=== PATIENT | male | born 1965 | race Caucasian/White ===

== ENCOUNTER 2021-09-17 06:55 | Day surgery (SDC) | payer OTHER ==
[2021-09-17] VITALS (10 sets, daily range): BP systolic 83–138; BP diastolic 53–87
[~2021-09-17] VITALS: Ht 185.4 cm; Wt 99.8 kg
--- NOTE | 2021-09-17 08:00 | NUR ---
KRYSTYNA SANABRIA FROM [facility] TEAM IN ROOM TO OBTAIN VS.
--- NOTE | 2021-09-17 08:14 | NUR ---
PATIENT IS RESTING IN BED. ASSESSMENT DONE. PATIENT IS ALERT AND ORIENT X3. RESPS EVEN AND UNLABORED. KRYSTYNA SANABRIA STARTED A #20 IV THAT APPEAR HEALTHY. PATIENT DENIES NEEDS. CALL LIGHT IN REACH.
--- NOTE | 2021-09-17 08:29 | NUR ---
PATIENT IS VERY DROWSY. WAS ABLE TO OBTAIN VS BUT NOT FULL ASSESSMENT AT THIS TIME. CALL LIGHT IN REACH AND BED ALARM IN PLACE.
[2021-09-17] MEDS ORDERED: OXYCODONE30 MG PO (09:00)
[2021-09-17] MEDS ORDERED: NEXIUM40 M1 PO (09:00)
[2021-09-17 09:47] LABS: HEMATOCRIT 41.7 % (39.0-50.0); HEMOGLOBIN 14.3 g/dl (14.0-18.0); MEAN CELL VOLUME 85.3 fL CALC (80.0-100.0); MEAN CORPUSCULAR HGB 29.2 pG CALC (26.0-32.0); MEAN CORPUSCULAR HGB CONC 34.3 g/dL CAL (32.0-36.0); RED BLOOD COUNT 4.89 mill/uL (4.70-6.10); RED CELL DISTRI WIDTH 12.9 % (11.5-15.5)
[2021-09-17 10:00] LABS: ALBUMIN 4.1 g/dL (3.2-5.0); ALKALINE PHOSPHATASE 54 u/l (38-126); ANION GAP 8 (6-22 (CALC)); BILIRUBIN, TOTAL 1.1 mg/dL (0.0-1.4); BUN 13 mg/dL (9-20); BUN/CREATININE RATIO 15 (12-20 (CALC)); CARBON DIOXIDE 32 mmol/l (22-30); CHLORIDE 104 mmol/l (95-108); CREATININE 0.8 mg/dL (0.7-1.3); GFR > 60 ML/MIN (>=60 (CALC)); GFR FOR AFR.AMER. > 60 ML/MIN (>=60 (CALC)); POTASSIUM 3.7 mmol/l (3.5-5.1); SGOT/AST 41 u/l (17-59); SODIUM 140 mmol/l (137-146); TOTAL PROTEIN 7.3 g/dL (6.3-8.2)
[2021-09-17] MEDS ORDERED: CLONIDINE0.1 MG PO (10:31)
[2021-09-17] MEDS ORDERED: NALTREXONE50 MG PO (10:31)
[2021-09-17] MEDS ORDERED: KLONOPIN0.5 MG PO (10:32)
--- NOTE | 2021-09-17 10:55 | NUR ---
PATIENT WENT VIA BED TO THE [facility] PROCEDURE BY KRYSTYNA SANABRIA.
--- NOTE | 2021-09-17 14:46 | NUR ---
PATIENT CAME FROM [facility] PROCEDURE VIA BED BY KRYSTYNA SANABRIA AND DR. PIKE. REPORT RECEIVED FROM KRYSTYNA SANABRIA FROM [facility] TEAM. PATIENT IS SLEEPING IN BED WITH NO DISTRESS NOTED. O2 AT 2L VIA NC. BED ALRM IN PLACE. GOLF COACH IN ROOM TO OBTAIN VS.
--- NOTE | 2021-09-17 15:29 | NUR ---
ALAYNA AND KRYSTYNA SANABRIA FROM [facility] IN ROOM. THEY ARE GAVING CECI CARE BECAUSE PATIENT HAD A BM IN BED. PATIENT YELLING IN IN ROOM.
--- NOTE | 2021-09-17 16:30 | NUR ---
PATIENT YELLING, KICKING, AND PUNCHING THE AIR. REORIENT PATIENT. BED ALARM IN PLACE.
--- NOTE | 2021-09-17 17:44 | NUR ---
PATIENT IS SLEEPING IN BED WITH NO DISTRESS NOTED AT THIS TIME. BED ALARM IN PLACE.
--- NOTE | 2021-09-17 18:17 | NUR ---
PATIENT KEEPS YELLING AND SWING ARMS. MEDICATED PATIENT WITH ATIVAN PER ORDER. BED ALARM IN PLACE.
--- NOTE | 2021-09-17 19:29 | NUR ---
1914 HEAR PATIENT YELLING AND BED ALARM SET OFF. ALAYNA KU IN ROOM FOUND PATIENT IN THE FLOOR ON HIS RIGHT SHOULDER. REDNESS NOTED ON RIGHT SHOULDER. PATIENT STATED HE WANTS TO GO TO THE BATHROOM. ALAYNA KU, TRUE,CHERY, AND SUPERVISOR LITHARGE ASSISTED PATIENT TO STAND . THEN ASSISTED PATIENT TO THE BATHROOM. PATIENT HAD BM. THEN ASSISTED PATIENT TO THE BED BUT PATIENT UNSTEADY. 1921 VS OBTAIN 96.7 P-54, BP 131/74, AND O2 96% RA. NO DISTRESS NOTED ON PATIENT AT THIS TIME. BED ALARM IN PLACE. [address] PIKE ABOUT PATIENT FALL NO NEW ORDERS REICEVED AT THIS TIME.
--- NOTE | 2021-09-17 23:10 | NUR ---
ATTORNEY ELMIRA AT BEDSIDE, PT DROWSY ABLE TO ANSWER APPROPRIATLY.
[2021-09-18 03:16] VITALS: BP 123/77
[2021-09-18 05:55] LABS: ALBUMIN 3.7 g/dL (3.2-5.0); ALKALINE PHOSPHATASE 48 u/l (38-126); ANION GAP 6 (6-22 (CALC)); BILIRUBIN, TOTAL 1.1 mg/dL (0.0-1.4); BUN 13 mg/dL (9-20); BUN/CREATININE RATIO 22 (12-20 (CALC)); CARBON DIOXIDE 28 mmol/l (22-30); CHLORIDE 108 mmol/l (95-108); CREATININE 0.6 mg/dL (0.7-1.3); GFR > 60 ML/MIN (>=60 (CALC)); GFR FOR AFR.AMER. > 60 ML/MIN (>=60 (CALC)); MAGNESIUM 2.1 mg/dL (1.6-2.3); SGOT/AST 31 u/l (17-59); SODIUM 138 mmol/l (137-146); TOTAL PROTEIN 6.7 g/dL (6.3-8.2)
--- NOTE | 2021-09-18 06:44 | NUR ---
UP TO THE RESTROOM AT THIS TIME WITH MINIUM ASSIT.
--- NOTE | 2021-09-18 11:01 | NUR ---
PT STATING THEY FEEL SOB. VITALS OBTAINED: BP:127/82, HR: 86, RR:20, SPO2:99. DR. SIMON NOTIFIED. O2 @2L VIA NC PLACED. VERBAL CUES GIVEN TO CALM DOWN. PT CALMED DOWN. STATED NO OTHER NEEDS AT THIS TIME CALL LIGHT WITHIN REACH
[2021-09-18 11:03] VITALS: BP 127/82
--- NOTE | 2021-09-18 12:54 | NUR ---
PT SLEEPING AT THIS TIME IN RECLINER. BREATHING EVEN AND UNLABORED. NO DISTRESS NOTED. CALL LIGHT WITHIN REACH. FALL PRECAUTIONS IN PLACE.
--- NOTE | 2021-09-18 13:51 | NUR ---
MR. BLUNT AT BEDSIDE AT THIS TIME.
--- NOTE | 2021-09-18 14:16 | NUR ---
MR. BLUNT AT BEDSIDE AT THIS TIME
--- NOTE | 2021-09-18 15:00 | NUR ---
Discharge instructions given. Patient verbalizes understanding of same. Discharged in stable condition via Ambulatory to with [facility] STAFF YOSELIN AND ALAYNA ALARCON All belongings sent with pt. BOTH IV REMOVED RH 20G AND LH 20G, ALL CATHETERS ARE INTACT.
== END 2021-09-18 15:00 | disposition home or self-care (01) | DRG 897 ==
LOC: ANR 06:55 → MS2 06:57 → ANR 15:52
PROVIDERS: ATTEND Anesthesiology
DX: F11.20 Opioid dependence, uncomplicated (principal)
CPT/HCPCS: J2060; J2354